=== PATIENT | female | born 1990 | race African-American/Black ===

== ENCOUNTER → 2017-02-18 | Outpatient (CLI) | payer BC | END | disposition home or self-care (01) | LOC: RES 10:44 | DX: R07.89 Other chest pain (principal) | CPT/HCPCS: 94060; 94726; 94729 ==

== ENCOUNTER 2017-11-18 18:33 | Inpatient (IN) | payer BC ==
[~2017-11-18] VITALS: Ht 157.5 cm; Wt 78.9 kg
[2017-11-18 19:07] VITALS: BP 132/83
[2017-11-18] MEDS ORDERED: PRENATAL TABLE1 EAC3 PO (19:12)
[2017-11-18 19:50] VITALS: BP 125/79
[2017-11-18 20:01] LABS: BASOPHIL (%) 0.5 % (0-1); BASOPHIL COUNT 0.1 K/uL (0-0.1); EOSINOPHIL (%) 1.9 % (0-5); EOSINOPHIL COUNT 0.3 K/uL (0-0.3); HEMATOCRIT 35.6 % (36.0-46.0); HEMOGLOBIN 11.3 G/DL (11.9-15.5); IMMATURE GRANULOCYTE (%) 0.4 % (0.0-0.7); LYMPHOCYTE (%) 13.5 % (15-42); LYMPHOCYTE COUNT 1.7 K/uL (1.0-2.8); MCH 24.2 PG (29.0-34.0); MCHC 31.7 G/DL (30.0-36.0); MCV 76.2 FL (83-99); MONOCYTE (%) 5.2 % (3-12); MONOCYTE COUNT 0.7 K/uL (0-0.8); NEUTROPHIL (%) 78.5 % (45-76); NEUTROPHIL COUNT 10.1 K/uL (1.8-6.4); NRBC (%) 0.6 /100 WBC (0-0); PLATELET COUNT 318 K/uL (156-360); RBC DIS.WIDTH-CV 15.6 % (11.8-14.6); RBC DIS.WIDTH-SD 42.1 % (39-53); RED BLOOD COUNT 4.67 M/uL (3.80-5.20); WHITE BLOOD COUNT 12.9 K/uL (4.1-10.2)
[2017-11-18 20:57] LABS: BENZODIAZEPINES, URINE SCREEN Negative (200 ng/mL)
[2017-11-18 21:29] VITALS: BP 130/86
[2017-11-18 22:53] VITALS: BP 125/79
[2017-11-18 23:54] VITALS: BP 116/64
[2017-11-19] VITALS (34 sets, daily range): BP systolic 100–147; BP diastolic 55–84
[2017-11-20 00:07] VITALS: BP 112/57
[2017-11-20 01:03] VITALS: BP 110/53
[2017-11-20 03:00] VITALS: BP 114/67
[2017-11-20 05:00] VITALS: BP 123/73
[2017-11-20 07:03] LABS: BASOPHIL (%) 0.2 % (0-1); EOSINOPHIL (%) 0.1 % (0-5); HEMATOCRIT 27.7 % (36.0-46.0); IMMATURE GRANULOCYTE (%) 0.5 % (0.0-0.7); LYMPHOCYTE (%) 8.1 % (15-42); LYMPHOCYTE COUNT 1.5 K/uL (1.0-2.8); MCH 24.7 PG (29.0-34.0); MCHC 32.5 G/DL (30.0-36.0); MCV 75.9 FL (83-99); MONOCYTE (%) 4.8 % (3-12); MONOCYTE COUNT 0.9 K/uL (0-0.8); NEUTROPHIL (%) 86.3 % (45-76); NEUTROPHIL COUNT 15.8 K/uL (1.8-6.4); PLATELET COUNT 229 K/uL (156-360); RBC DIS.WIDTH-CV 15.8 % (11.8-14.6); RBC DIS.WIDTH-SD 42.8 % (39-53); WHITE BLOOD COUNT 18.3 K/uL (4.1-10.2)
[2017-11-20 07:08] LABS: RED BLOOD COUNT 3.65 M/uL (3.80-5.20)
[2017-11-20 19:30] VITALS: BP 121/68
[2017-11-20 22:49] VITALS: BP 119/72
[2017-11-21 02:49] VITALS: BP 124/70
[2017-11-21 07:09] VITALS: BP 118/71
[2017-11-21 11:29] VITALS: BP 140/82
[2017-11-21 14:24] VITALS: BP 129/84
[2017-11-21 23:29] VITALS: BP 130/71
[2017-11-22 07:24] VITALS: BP 138/95
[2017-11-22] MEDS ORDERED: MOTRIN800 MG PO (10:17)
[2017-11-22] MEDS ORDERED: PERCOCET 5/31 TABLET PO (10:17)
== END 2017-11-22 15:15 | disposition home or self-care (01) | DRG 765 ==
LOC: LDRP-OP 18:33 → 2WEST 18:34 → LDRP-OP 20:16 → 2WEST 11-19 21:11 → LDRP-OP 12-13 13:24
PROVIDERS: Advanced Practice Midwife; Obstetrics & Gynecology; Obstetrics & Gynecology Gynecology
PROC: 10D00Z1 Extraction of Products of Conception, Low, Open Approach (ICD-10-PCS; principal; 2017-11-19)
PROC: 10907ZC Drainage of Amniotic Fluid, Therapeutic from Products of Conception, Via Natural or Artificial Opening (ICD-10-PCS; principal; 2017-11-19)
PROC: 3E0R3BZ Introduction of Anesthetic Agent into Spinal Canal, Percutaneous Approach (ICD-10-PCS; principal; 2017-11-19)
PROC: 3E033VJ Introduction of Other Hormone into Peripheral Vein, Percutaneous Approach (ICD-10-PCS; principal; 2017-11-19)
PROC: 00HU33Z Insertion of Infusion Device into Spinal Canal, Percutaneous Approach (ICD-10-PCS; 2017-11-19)
DX: O40.3XX0 Polyhydramnios, third trimester, not applicable or unspecified (principal); O41.1230 Chorioamnionitis, third trimester, not applicable or unspecified; O48.0 Post-term pregnancy; O24.420 Gestational diabetes mellitus in childbirth, diet controlled; O99.343 Other mental disorders complicating pregnancy, third trimester; F32.9 Major depressive disorder, single episode, unspecified; F41.9 Anxiety disorder, unspecified; Z3A.40 40 weeks gestation of pregnancy; Z37.0 Single live birth; O33.9 Maternal care for disproportion, unspecified; O76 Abnormality in fetal heart rate and rhythm complicating labor and delivery; Z87.440 Personal history of urinary (tract) infections; O62.1 Secondary uterine inertia; O24.410 Gestational diabetes mellitus in pregnancy, diet controlled; Z87.891 Personal history of nicotine dependence
CPT/HCPCS: 80306 90; 82948; 85025; 87070; 87075; 87205; 88307; C1755; G0378; J0131; J0295; J0690; J2274; J2405; J2540; J2765; J3010; J7050; J7120